=== PATIENT | female | born 1970 | race Caucasian/White ===

== ENCOUNTER 2017-08-04 14:19 | Inpatient (IN) | payer BC, MEDICAID, OTHER ==
[2017-08-04 15:08] LABS: ADD MAN DIFF? NO
[2017-08-04 15:09] LABS: WHITE BLOOD COUNT 15.3 10^3/ul (4.8-10.8)
[2017-08-04 15:09] LABS: ABNORMAL IP MESSAGE 1; BASOPHIL # 0.1 10^3/ul (0.0-0.1); BASOPHILS % 0.3 % (0.0-2.0); EOSINOPHILS % 0.1 % (0.0-7.0); HEMOGLOBIN 12.4 g/dl (12.0-16.0); LYMPHOCYTES # 0.8 10^3/ul (0.8-2.9); LYMPHOCYTES % 5.2 % (15.0-51.0); MEAN CORPUSCULAR HEMOGLOBIN 30.8 pg (29.0-33.0); MEAN CORPUSCULAR HGB CONC 32.6 g/dl (32.0-37.0); MEAN CORPUSCULAR VOLUME 94.3 fl (82.0-101.0); MEAN PLATELET VOLUME 10.5 fl (7.4-10.4); MONOCYTE # 1.6 10^3/ul (0.3-0.9); MONOCYTES % 10.1 % (0.0-11.0); NEUTROPHIL # 12.8 10^3/ul (1.6-7.5); NEUTROPHILS % 83.5 % (39.0-77.0); PLATELET COUNT 246 10^3/UL (140-415); RED BLOOD COUNT 4.03 10^6/ul (4.20-5.40); RED CELL DISTRIBUTION WIDTH 12.8 % (11.5-14.5)
[2017-08-04] MEDS: KETOROLAC 30 MG INJ IV (15:12)
[2017-08-04] MEDS: METOCLOPRAMIDE 10 MG INJ IV (15:12)
[2017-08-04] MEDS: SODIUM CHLORIDE 0.9% 1L BAG IV* (15:13)
[2017-08-04 15:23] LABS: ADD UMIC YES; POSITIVE DIFF @See below; UR ASCORBIC ACID NEGATIVE (NEGATIVE); UR BACTERIA FEW /HPF (NONE SEEN); UR BILIRUBIN (Dip) NEGATIVE (NEGATIVE); UR BLOOD (Dip) 1+ mg/dL (NEGATIVE); UR BUDDING YEAST FEW /HPF (NONE SEEN); UR CLARITY SLIGHTLY CLOUDY (CLEAR); UR COLOR YELLOW (YELLOW); UR GLUCOSE (Dip) NEGATIVE (NEGATIVE); UR KETONES (Dip) TRACE mg/dL (NEGATIVE); UR LEUKOCYTE ESTERASE (Dip) 3+ Leu/ul (NEGATIVE); UR NITRITE (Dip) NEGATIVE (NEGATIVE); UR RBC 3 /HPF (0-5); UR TOTAL PROTEIN (Dip) 1+ mg/dl (NEGATIVE); UR UROBILINOGEN (Dip) NEGATIVE (NEGATIVE); UR WBC 103 /HPF (0-5)
[2017-08-04 15:51] LABS: ANION GAP 16 (8-16)
[2017-08-04 15:52] LABS: ALANINE AMINOTRANSFERASE 78 IU/L (13-69); ALBUMIN 4.1 g/dl (3.3-4.9); ALBUMIN/GLOBULIN RATIO 0.95; ALKALINE PHOSPHATASE 156 IU/L (42-121); ASPARTATE AMINO TRANSFERASE 63 IU/L (15-46); BILIRUBIN,INDIRECT 0.5 mg/dl (0-1.1); BILIRUBIN,TOTAL 0.5 mg/dl (0.2-1.3); BLOOD UREA NITROGEN 9 mg/dl (7-20); CALCIUM 9.7 mg/dl (8.4-10.2); CARBON DIOXIDE 24 mmol/L (21-31); CHLORIDE 99 mmol/L (97-110); GLUCOSE 142 mg/dl (70-220); POTASSIUM 4.3 mmol/L (3.5-5.1); SODIUM 135 mmol/L (135-144); TOTAL PROTEIN 8.4 g/dl (6.1-8.1)
[2017-08-04 15:55] LABS: LACTIC ACID 2.5 mmol/L (0.5-2.0)
[2017-08-04] MEDS: SUMATRIPTAN 6 MG/0.5 ML INJ SC (15:59)
[2017-08-04] MEDS: CEFTRIAXONE 1 GM/50 ML (PMX) 50 ML IVPB (16:45)
[2017-08-04] MEDS ORDERED: ACETAMINOPHEN 325 MG TAB PO (17:30)
[2017-08-04] MEDS ORDERED: ONDANSETRON 4 MG INJ IV (17:30)
[2017-08-04] MEDS: HYDROCODONE/APAP (5/325) TAB PO (18:25)
[2017-08-04] MEDS: morphine 2 MG INJ IV ×2 (18:29→22:36)
[2017-08-04] MEDS ORDERED: NA PHOSPHATE/BIPHOS 133 ML ENEMA PR (18:30)
[2017-08-04] MEDS ORDERED: NACL 0.9% 3 ML SYG IV (18:30)
[2017-08-04] MEDS ORDERED: MAGNESIUM HYDROXIDE 30ML CUP PO (18:30)
[2017-08-04] MEDS ORDERED: ALBUTEROL/IPRATROPIUM (NEB) 3 ML AMP HHN (18:30)
[2017-08-04] MEDS ORDERED: DOCUSATE SODIUM 100 MG CAP PO (18:30)
[2017-08-04] MEDS ORDERED: hydrALAzine 20 MG INJ IV (18:30)
[2017-08-04] MEDS ORDERED: NITROGLYCERIN (SL) 0.4 MG TAB SL (18:30)
[2017-08-04 19:05] LABS: LIPASE 15 U/L (23-300)
[2017-08-04 19:24] LABS: FREE T4 (FREE THYROXINE) 0.99 ng/dl (0.64-1.79)
[2017-08-04 19:56] LABS: LACTIC ACID 1.1 mmol/L (0.5-2.0)
[2017-08-04] MEDS: ONDANSETRON 4 MG INJ IV (20:42)
[2017-08-04] MEDS: HEPARIN 5,000 UNIT/0.5 ML VIAL SC (20:42)
[2017-08-04] MEDS: SOD CHLORIDE 0.9% 1,000 ML IV (20:43)
[2017-08-04] MEDS: ACETAMINOPHEN 325 MG TAB PO (20:58)
[2017-08-04 21:46] LABS: LACTIC ACID 2.1 mmol/L (0.5-2.0)
[2017-08-04] MEDS: CEFEPIME 2GM/50 ML (PMX) 50 ML IVPB (22:06)
[2017-08-04 23:34] LABS: LACTIC ACID 1.7 mmol/L (0.5-2.0)
[2017-08-04] MEDS: LORAZEPAM 2 MG INJ IV (23:57)
[2017-08-05] MEDS: HYDROCODONE/APAP (5/325) TAB PO ×2 (00:57→17:40)
[2017-08-05 01:35] LABS: LACTIC ACID 1.9 mmol/L (0.5-2.0)
[2017-08-05] MEDS: morphine 2 MG INJ IV ×2 (04:11→10:30)
[2017-08-05] MEDS: SOD CHLORIDE 0.9% 1,000 ML IV (04:13)
[2017-08-05] MEDS: PANTOPRAZOLE (EC) 40 MG TAB PO (05:08)
[2017-08-05 06:19] LABS: ADD MAN DIFF? NO
[2017-08-05 06:31] LABS: ABNORMAL IP MESSAGE 1; BASOPHIL # 0.1 10^3/ul (0.0-0.1); BASOPHILS % 0.4 % (0.0-2.0); HEMATOCRIT 37.4 % (37.0-47.0); HEMOGLOBIN 11.9 g/dl (12.0-16.0); LYMPHOCYTES # 0.7 10^3/ul (0.8-2.9); MEAN CORPUSCULAR HEMOGLOBIN 31.1 pg (29.0-33.0); MEAN CORPUSCULAR HGB CONC 31.8 g/dl (32.0-37.0); MEAN CORPUSCULAR VOLUME 97.7 fl (82.0-101.0); MEAN PLATELET VOLUME 11.1 fl (7.4-10.4); MONOCYTE # 1.6 10^3/ul (0.3-0.9); MONOCYTES % 13.6 % (0.0-11.0); NEUTROPHIL # 9.2 10^3/ul (1.6-7.5); NEUTROPHILS % 79.4 % (39.0-77.0); PLATELET COUNT 254 10^3/UL (140-415); RED BLOOD COUNT 3.83 10^6/ul (4.20-5.40); RED CELL DISTRIBUTION WIDTH 13.2 % (11.5-14.5)
[2017-08-05 06:31] LABS: WHITE BLOOD COUNT 11.6 10^3/ul (4.8-10.8)
[2017-08-05] MEDS: ACETAMINOPHEN 325 MG TAB PO (06:32)
[2017-08-05] MEDS: SUMATRIPTAN 6 MG/0.5 ML INJ SC (06:33)
[2017-08-05 06:47] LABS: POSITIVE DIFF @See below
[2017-08-05 06:48] LABS: ALANINE AMINOTRANSFERASE 57 IU/L (13-69); ALBUMIN 3.7 g/dl (3.3-4.9); ALKALINE PHOSPHATASE 144 IU/L (42-121); ASPARTATE AMINO TRANSFERASE 53 IU/L (15-46); BILIRUBIN,INDIRECT 0.4 mg/dl (0-1.1); BILIRUBIN,TOTAL 0.4 mg/dl (0.2-1.3); CHOL/HDL RATIO 5.6 RATIO; HDL CHOLESTEROL 29 mg/dl (34-88); LDL CHOLESTEROL,CALCULATED 101 mg/dl; TOTAL PROTEIN 7.2 g/dl (6.1-8.1); TRIGLYCERIDES 168 mg/dl (0-149)
[2017-08-05 06:48] LABS: CHOLESTEROL 164 mg/dl (100-200)
[2017-08-05 06:55] LABS: LACTIC ACID 1.4 mmol/L (0.5-2.0)
[2017-08-05 07:41] LABS: ANION GAP 19 (8-16); BLOOD UREA NITROGEN 11 mg/dl (7-20); CALCIUM 8.6 mg/dl (8.4-10.2); CARBON DIOXIDE 20 mmol/L (21-31); CHLORIDE 104 mmol/L (97-110); CREATININE 0.73 mg/dl (0.44-1.00); GLUCOSE 99 mg/dl (70-220); MAGNESIUM 1.9 mg/dl (1.7-2.5); POTASSIUM 3.9 mmol/L (3.5-5.1); SODIUM 139 mmol/L (135-144)
[2017-08-05 07:51] LABS: HEMOGLOBIN A1C 5.5 % (0-5.9)
[2017-08-05] MEDS: HEPARIN 5,000 UNIT/0.5 ML VIAL SC ×2 (09:29→20:22)
[2017-08-05] MEDS: CEFEPIME 2GM/50 ML (PMX) 50 ML IVPB ×2 (10:29→20:22)
[2017-08-05 11:49] LABS: LACTIC ACID 1.3 mmol/L (0.5-2.0)
[2017-08-05] MEDS: SOD CHLORIDE 0.9% 100 ML (14:05)
[2017-08-05] MEDS: IOHEXOL 300MG/ML 150 ML BTL (14:05)
[2017-08-05] MEDS: morphine LIQ (10 MG/5 ML) CUP PO (20:56)
[2017-08-05] MEDS ORDERED: TAMSULOSIN (SR) 0.4 MG CAP PO (21:00)
[2017-08-05] MEDS: ONDANSETRON 4 MG INJ IV (22:33)
[2017-08-06] MEDS: morphine LIQ (10 MG/5 ML) CUP PO ×4 (00:39→19:52)
[2017-08-06] MEDS: LORAZEPAM 2 MG INJ IV ×2 (03:24→16:33)
[2017-08-06 05:55] LABS: ADD MAN DIFF? NO
[2017-08-06 06:04] LABS: WHITE BLOOD COUNT 8.7 10^3/ul (4.8-10.8)
[2017-08-06 06:04] LABS: BASOPHIL # 0.1 10^3/ul (0.0-0.1); BASOPHILS % 0.6 % (0.0-2.0); EOSINOPHILS % 0.5 % (0.0-7.0); HEMATOCRIT 36.1 % (37.0-47.0); HEMOGLOBIN 11.8 g/dl (12.0-16.0); LYMPHOCYTES # 1.4 10^3/ul (0.8-2.9); MEAN CORPUSCULAR HEMOGLOBIN 30.5 pg (29.0-33.0); MEAN CORPUSCULAR HGB CONC 32.7 g/dl (32.0-37.0); MEAN CORPUSCULAR VOLUME 93.3 fl (82.0-101.0); MEAN PLATELET VOLUME 10.3 fl (7.4-10.4); MONOCYTE # 1.2 10^3/ul (0.3-0.9); MONOCYTES % 13.5 % (0.0-11.0); NEUTROPHILS % 68.5 % (39.0-77.0); PLATELET COUNT 288 10^3/UL (140-415); RED BLOOD COUNT 3.87 10^6/ul (4.20-5.40)
[2017-08-06 06:41] LABS: ANION GAP 15 (8-16); BLOOD UREA NITROGEN 10 mg/dl (7-20); CALCIUM 8.9 mg/dl (8.4-10.2); CARBON DIOXIDE 22 mmol/L (21-31); CHLORIDE 107 mmol/L (97-110); CREATININE 0.91 mg/dl (0.44-1.00); GLUCOSE 153 mg/dl (70-220); POTASSIUM 3.5 mmol/L (3.5-5.1); SODIUM 140 mmol/L (135-144)
[2017-08-06] MEDS: CEFEPIME 2GM/50 ML (PMX) 50 ML IVPB ×2 (08:32→21:00)
[2017-08-06] MEDS: HEPARIN 5,000 UNIT/0.5 ML VIAL SC ×2 (08:35→21:07)
[2017-08-06] MEDS: HYDROCODONE/APAP (5/325) TAB PO ×2 (08:35→16:26)
[2017-08-07] MEDS: morphine LIQ (10 MG/5 ML) CUP PO ×3 (00:47→20:26)
[2017-08-07] MEDS: LORAZEPAM 2 MG INJ IV (01:36)
[2017-08-07 08:56] LABS: ADD MAN DIFF? NO
[2017-08-07 09:02] LABS: WHITE BLOOD COUNT 10.1 10^3/ul (4.8-10.8)
[2017-08-07 09:02] LABS: BASOPHIL # 0.1 10^3/ul (0.0-0.1); BASOPHILS % 0.8 % (0.0-2.0); EOSINOPHILS # 0.1 10^3/ul (0.0-0.5); EOSINOPHILS % 1.1 % (0.0-7.0); HEMATOCRIT 37.4 % (37.0-47.0); HEMOGLOBIN 12.3 g/dl (12.0-16.0); LYMPHOCYTES # 1.8 10^3/ul (0.8-2.9); LYMPHOCYTES % 17.5 % (15.0-51.0); MEAN CORPUSCULAR HEMOGLOBIN 30.5 pg (29.0-33.0); MEAN CORPUSCULAR HGB CONC 32.9 g/dl (32.0-37.0); MEAN CORPUSCULAR VOLUME 92.8 fl (82.0-101.0); MEAN PLATELET VOLUME 10.1 fl (7.4-10.4); MONOCYTE # 1.4 10^3/ul (0.3-0.9); MONOCYTES % 14.2 % (0.0-11.0); NEUTROPHIL # 6.5 10^3/ul (1.6-7.5); NEUTROPHILS % 64.8 % (39.0-77.0); PLATELET COUNT 329 10^3/UL (140-415); RED BLOOD COUNT 4.03 10^6/ul (4.20-5.40); RED CELL DISTRIBUTION WIDTH 13.1 % (11.5-14.5)
[2017-08-07 09:22] LABS: ANION GAP 19 (8-16); BLOOD UREA NITROGEN 13 mg/dl (7-20); CARBON DIOXIDE 23 mmol/L (21-31); CHLORIDE 104 mmol/L (97-110); CREATININE 0.79 mg/dl (0.44-1.00); GLUCOSE 106 mg/dl (70-220); POTASSIUM 3.7 mmol/L (3.5-5.1); SODIUM 142 mmol/L (135-144)
[2017-08-07] MEDS: CEFEPIME 2GM/50 ML (PMX) 50 ML IVPB (09:34)
[2017-08-07] MEDS: HEPARIN 5,000 UNIT/0.5 ML VIAL SC ×2 (09:36→20:29)
[2017-08-07] MEDS: LEVOFLOXACIN 750 MG TABLET PO (12:13)
[2017-08-07] MEDS: HYDROCODONE/APAP (5/325) TAB PO (19:00)
[2017-08-08] MEDS: morphine LIQ (10 MG/5 ML) CUP PO ×2 (01:11→06:15)
[2017-08-08 06:29] LABS: WHITE BLOOD COUNT 10.7 10^3/ul (4.8-10.8)
[2017-08-08 06:29] LABS: ABNORMAL IP MESSAGE 1; HEMATOCRIT 38.1 % (37.0-47.0); HEMOGLOBIN 12.4 g/dl (12.0-16.0); MEAN CORPUSCULAR HEMOGLOBIN 30.4 pg (29.0-33.0); MEAN CORPUSCULAR HGB CONC 32.5 g/dl (32.0-37.0); MEAN CORPUSCULAR VOLUME 93.4 fl (82.0-101.0); PLATELET COUNT 341 10^3/UL (140-415); RED BLOOD COUNT 4.08 10^6/ul (4.20-5.40); RED CELL DISTRIBUTION WIDTH 13.2 % (11.5-14.5)
[2017-08-08 06:35] LABS: ADD MAN DIFF? YES; POSITIVE DIFF @See below
[2017-08-08 06:47] LABS: ANION GAP 16 (8-16); BLOOD UREA NITROGEN 13 mg/dl (7-20); CARBON DIOXIDE 21 mmol/L (21-31); CHLORIDE 107 mmol/L (97-110); CREATININE 0.76 mg/dl (0.44-1.00); GLUCOSE 102 mg/dl (70-220); POTASSIUM 3.8 mmol/L (3.5-5.1); SODIUM 140 mmol/L (135-144)
[2017-08-08 07:49] LABS: BAND NEUTROPHILS #M 0.3 10^3/ul (0.0-0.6); BAND NEUTROPHILS % (M) 3 % (0-4); BASOPHIL #M 0.1 10^3/ul (0.0-0.0); BASOPHILS % (M) 1 % (0-2); EOSINOPHILS % (M) 1 % (0-7); GIANT THROMBO% (M) 1 % (0-0); LYMPHOCYTES #M 2.4 10^3/ul (0.8-2.9); LYMPHOCYTES % (M) 23 % (15-51); MONOCYTE #M 0.7 10^3/ul (0.3-0.9); MONOCYTES % (M) 7 % (0-11); MYELOCYTES #M 0.2 10^3/ul (0.0-0.0); MYELOCYTES % (M) 2 % (0-0); PLATELET ESTIMATE NORMAL; POLYCHROMASIA 1+ (0-0); REACTIVE LYMPHOCYTES #M 0.2 10^3/ul (0.0-0.0); REACTIVE LYMPHOCYTES% (M) 2 % (0-0); SEG NEUT #M 6.6 10^3/ul (1.6-7.5); SEGMENTED NEUTROPHILS (M) % 61 % (39-77); SMUDGE%M 2 % (0-0)
[2017-08-08] MEDS: LEVOFLOXACIN 750 MG TABLET PO (09:11)
[2017-08-08] MEDS: HEPARIN 5,000 UNIT/0.5 ML VIAL SC (09:12)
[2017-08-08] MEDS: HYDROCODONE/APAP (5/325) TAB PO (09:16)
== END 2017-08-08 11:55 | disposition home or self-care (01) | DRG 872 ==
LOC: E/R 14:19 → MS2 17:31
DX: A41.51 Sepsis due to Escherichia coli [E. coli] (principal); N13.6 Pyonephrosis; R65.20 Severe sepsis without septic shock; G43.909 Migraine, unspecified, not intractable, without status migrainosus; F17.210 Nicotine dependence, cigarettes, uncomplicated
CPT/HCPCS: 36415; 71045; 74018; 74178; 80048; 80053; 80061; 80076; 81001; 83036; 83605; 83690; 83735; 84100; 84439; 84443; 84703; 85025; 87040; 87086; 87400; 96372; 96374; 96375; 99291-25

== ENCOUNTER 2018-06-06 07:13 | Emergency (ER) | payer BC, MEDICAID ==
[2018-06-06] MEDS: HYDROmorphONE 2 MG/ML SYG IM ×2 (08:55→10:28)
[2018-06-06] MEDS: KETOROLAC 30 MG INJ IM (08:56)
[2018-06-06] MEDS: ONDANSETRON (ODT) 4 MG TAB ODT (08:56)
[2018-06-06 09:15] LABS: URINE BLOOD (Dip) POC 3+ (NEGATIVE); URINE GLUCOSE (Dip) POC Negative (NEGATIVE); URINE KETONES (Dip) POC Negative (NEGATIVE); URINE LEUKOCYTE EST (Dip) POC 3+ (NEGATIVE); URINE NITRITE (Dip) POC Positive (NEGATIVE); URINE TOTAL PROTEIN POC 3+ (NEGATIVE)
[2018-06-06 09:15] LABS: URINE PH (Dip) POC 6.5 (5.0-8.5)
[2018-06-06] MEDS: CIPROFLOXACIN 500 MG TAB PO (10:29)
== END 2018-06-06 12:40 | disposition home or self-care (01) ==
LOC: E/R 07:13
DX: N20.0 Calculus of kidney (principal); N12 Tubulo-interstitial nephritis, not specified as acute or chronic; Z87.891 Personal history of nicotine dependence
CPT/HCPCS: 74018; 81003; 81025; 96372; 99284-25

== ENCOUNTER 2018-08-13 22:40 | Emergency (ER) | payer BC, MEDICAID ==
[2018-08-14] MEDS: DIPHENHYDRAMINE 25 MG CAP PO (02:57)
[2018-08-14] MEDS: HYDROCODONE/APAP (10/325) TAB PO (02:57)
[2018-08-14] MEDS: FAMOTIDINE 20 MG TAB PO (02:57)
[2018-08-14] MEDS: KETOROLAC 30 MG INJ IM (02:58)
== END 2018-08-14 03:13 | disposition home or self-care (01) ==
LOC: FTE 08-14 03:13
DX: S80.862A Insect bite (nonvenomous), left lower leg, initial encounter (principal); M77.11 Lateral epicondylitis, right elbow; L03.115 Cellulitis of right lower limb; L03.116 Cellulitis of left lower limb; L03.114 Cellulitis of left upper limb; S80.861A Insect bite (nonvenomous), right lower leg, initial encounter; W57.XXXA Bitten or stung by nonvenomous insect and other nonvenomous arthropods, initial encounter; Y92.9 Unspecified place or not applicable
CPT/HCPCS: 81025; 96372; 99284-25